=== PATIENT | female | born 2005 | race Caucasian/White ===

== ENCOUNTER 2024-09-05 19:32 | Emergency (ER) | payer OTHER ==
[2024-09-05] MEDS ORDERED: Acetaminophen/oxyCODONE 325-5 MG Tab PO ONE (19:33)
[2024-09-05] MEDS ORDERED: Sodium Chloride 0.9% 10 ML Syringe FLUSH PRN (19:53)
[2024-09-05] MEDS: Sodium Chloride 0.9% 1,000 ML IV SCH (21:05)
[2024-09-05] MEDS: Iopamidol 755 Mg/ML 100 ML Bottle IV SCH (21:11)
== END 2024-09-05 22:51 | disposition home or self-care (01) ==
LOC: FB.ED 19:32
DX: N83.202 Unspecified ovarian cyst, left side (principal)
CPT/HCPCS: 74177; 81025; 96360; 96361; 99284; A9270; J7030; Q9967